=== PATIENT | female | born 1955 | race Caucasian/White ===

== ENCOUNTER 2022-05-12 07:06 | Day surgery (SDC) | payer OTHER ==
[~2022-05-12] VITALS: Ht 165.1 cm; Wt 48.5 kg
[2022-05-12] MEDS ORDERED: PROPOFOL 200MG/ 20ML VIAL (DIPRIVAN) IV ONE (08:47)
[2022-05-12] MEDS ORDERED: LABETALOL 100 MG/ 20ML VIAL ONE (08:47)
[2022-05-12] MEDS ORDERED: MEPERIDINE 50 MG/ML VIAL IVP PRN (10:00)
[2022-05-12] MEDS ORDERED: LR 500 ML IV SCH (10:00)
[2022-05-12] MEDS ORDERED: LABETALOL 100 MG/ 20ML VIAL IVP PRN (10:00)
[2022-05-12] MEDS ORDERED: MEPERIDINE HCL/PF 25 MG/ML DISP.SYRIN IVP PRN (10:00)
[2022-05-12] MEDS ORDERED: ONDANSETRON HCL 4 MG/2 ML VIAL IVP PRN (10:00)
[2022-05-12 14:19] VITALS: BP_SYST 142
== END 2022-05-12 12:10 | disposition home or self-care (01) ==
LOC: SDS 07:06 → SMU 07:08 → SDS 12:10
PROVIDERS: ATTEND Internal Medicine Gastroenterology
DX: R19.4 Change in bowel habit (principal); D12.2 Benign neoplasm of ascending colon; K57.30 Diverticulosis of large intestine without perforation or abscess without bleeding; K64.8 Other hemorrhoids; I10 Essential (primary) hypertension; K21.9 Gastro-esophageal reflux disease without esophagitis; E03.9 Hypothyroidism, unspecified; F41.9 Anxiety disorder, unspecified; Z79.899 Other long term (current) drug therapy; Z20.822 Contact with and (suspected) exposure to COVID-19; Z98.890 Other specified postprocedural states
CPT/HCPCS: 45380; 45381; 45385; 87426; 36415; 88305; J3490; J2704; 45382; 45384